=== PATIENT | female | born 1930 | race Caucasian/White ===

== ENCOUNTER 2020-08-26 11:14 | Inpatient (IN) | payer MEDICARE ==
[~2020-08-26] VITALS: Ht 165.1 cm; Wt 56.1 kg
[2020-08-26 11:42] VITALS: BP 145/122
[2020-08-26] MEDS ORDERED: AREDS OPHTHALMIC (11:48)
[2020-08-26] MEDS ORDERED: NIACIN SR 250250 MG PO (11:49)
[2020-08-26 12:51] LABS: ABSOLUTE LYMPHOCYTES 1.3 thou/uL (0.8-5.3); ABSOLUTE MONOCYTES 0.5 thou/uL (0.0-1.2); ABSOLUTE NEUTROPHILS 5.1 thou/uL (1.6-8.1); BASOPHILS 0.4 %; EOSINOPHILS 0.6 %; HEMATOCRIT 35.9 % (37.0-47.0); HEMOGLOBIN 12.5 gm/dL (12.0-15.0); LYMPHOCYTES 19.1 %; MCH 29.6 pg (26.0-34.0); MCHC 34.7 g/dL (28.0-37.0); MCV 85.2 fL (80.0-100.0); MONOCYTES 7.3 %; MPV 6.3 fl. (7.2-11.1); NUCLEATED RBCS 0 /100WBC; PLATELET COUNT* 263 thou/uL (150-400); POLYS 72.6 %; RBC 4.22 mil/uL (4.20-5.00); RDW-CV 13.4 % (10.5-14.5)
[2020-08-26 13:03] LABS: CALCIUM 9.5 mg/dL (8.5-10.1); CREATININE 1.1 mg/dL (0.6-1.3); POTASSIUM 3.9 mmol/L (3.5-5.1)
[2020-08-26 13:19] LABS: ALBUMIN 4.2 g/dL (3.4-5.0); TOTAL BILIRUBIN 0.7 mg/dL (<0.1-1.0); TOTAL PROTEIN 8.1 g/dL (6.4-8.2)
[2020-08-26 13:28] LABS: URINE BILIRUBIN NEGATIVE (Negative); URINE BLOOD NEGATIVE (Negative); URINE CLARITY CLEAR; URINE COLOR YELLOW; URINE GLUCOSE-RANDOM NEGATIVE (Negative); URINE KETONES 1+ (Negative); URINE LEUKOCYTES-REFLEX NEGATIVE (Negative); URINE NITRITE-REFLEX NEGATIVE (Negative); URINE PROTEIN NEGATIVE (Negative); URINE SPECIFIC GRAVITY <= 1.005 (1.005-1.030); URINE UROBILINOGEN 0.2 E.U./dl (0.2-1.0)
--- NOTE | 2020-08-26 15:56 | EKG ---
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: : 1930 Requested By: Arturo Urrutia Order Number: [id number] MD: Ventura De Santiago Measurements Intervals [place] Rate: 53 P: 16 CT: 194 QRS: -30 QRSD: 108 T: 26 QT: 475 QTc: 446 Interpretive Statements Sinus bradycardia Left axis deviation Borderline ST elevation, lateral leads No previous ECG available for comparison Electronically Signed On 08-26-2020 15:56:12 CDT by Ventura De Santiago [email or web address] <ELECTRONICALLY SIGNED> By: Ventura De Santiago MD, [facility] 08/26/20 1556 1305 1305 Ventura De Santiago MD, FAC /EPI
[2020-08-26 20:00] VITALS: BP 103/40
[2020-08-26 20:05] VITALS: BP 122/43
[2020-08-26] MEDS ORDERED: ONE-A-DAY WOMENS PO (23:11)
[2020-08-27] VITALS: BP 109/48
[2020-08-27 04:00] VITALS: BP 111/34
--- NOTE | 2020-08-27 04:39 | NUR ---
RECEIVED PT FROM ED AT APPROX 1999. PT IS AWAKE AND ORIENTED X4. PT IS NOT IN DISTRESS, NO DESATURATIONS NOTED ON ROOM AIR. PT IS TRACING SR/SB ON THE DOCKING SAW OPERATOR. PT DENIES PAIN/DISCOMFORT. ADMISSION ASSESSMENT DONE AND CHARTED. PT IS ORIENTED ON ROOM SET UP AND ON THE USE OF CALL LIGHT. FALL PRECAUTIONS IN PLACE. CALL LIGHT WITHIN REACH. HOURLY ROUNDING DONE FOR PT SAFETY.
[2020-08-27 04:58] LABS: URINE POTASSIUM-RANDOM 18.7 mmol/L
[2020-08-27 08:32] LABS: ABSOLUTE EOSINOPHILS 0.1 thou/uL (0.0-0.7); ABSOLUTE LYMPHOCYTES 1.3 thou/uL (0.8-5.3); ABSOLUTE MONOCYTES 0.5 thou/uL (0.0-1.2); ABSOLUTE NEUTROPHILS 3.8 thou/uL (1.6-8.1); BASOPHILS 0.5 %; EOSINOPHILS 1.6 %; HEMATOCRIT 31.4 % (37.0-47.0); LYMPHOCYTES 23.3 %; MCH 29.9 pg (26.0-34.0); MCV 85.5 fL (80.0-100.0); MONOCYTES 8.9 %; MPV 6.7 fl. (7.2-11.1); NUCLEATED RBCS 0 /100WBC; PLATELET COUNT* 226 thou/uL (150-400); POLYS 65.7 %; RBC 3.68 mil/uL (4.20-5.00); RDW-CV 13.4 % (10.5-14.5); WBC 5.7 thou/uL (4.0-11.0)
[2020-08-27 08:51] LABS: CALCIUM 7.8 mg/dL (8.5-10.1); CREATININE 0.9 mg/dL (0.6-1.3); POTASSIUM 4.2 mmol/L (3.5-5.1)
[2020-08-27 15:29] VITALS: BP 106/40
--- NOTE | 2020-08-27 19:06 | NUR ---
ASSUMED CARE OF PATIENT AT 0700. ALL ASSESSMENTS COMPLETED CHARTED. PT ALERT AND ORIENTED X4; MATILDA ANY PAIN; VERY PLEASANT; SR ON THE MONITOR.
[2020-08-27 20:00] VITALS: BP 106/36
[2020-08-28] VITALS: BP 102/41
[2020-08-28 04:00] VITALS: BP 112/33
--- NOTE | 2020-08-28 04:20 | NUR ---
ASSUMED PT CARE AT APPROX 1930. PT IS AWAKE AND ORIENTED X4. PT IS NOT IN DISTRESS, NO DESATURATIONS NOTED ON ROOM AIR. PT IS TRACING SB ON THE TEACHING SUPERVISOR.BP ON THE SOFT SIDE, PT C/O SLIGHT DIZINESS WITH AMBULATION, PT IS ADVISED TO CHANGE POSITIONS SLOWLY. FALL PRECAUTIONS IN PLACE. PT IS CLOSELY MONITORED.
[2020-08-28 08:00] VITALS: BP 121/38
[2020-08-28 08:35] LABS: ABSOLUTE EOSINOPHILS 0.1 thou/uL (0.0-0.7); ABSOLUTE LYMPHOCYTES 1.5 thou/uL (0.8-5.3); ABSOLUTE MONOCYTES 0.4 thou/uL (0.0-1.2); ABSOLUTE NEUTROPHILS 3.9 thou/uL (1.6-8.1); BASOPHILS 0.5 %; EOSINOPHILS 2.4 %; HEMATOCRIT 31.3 % (37.0-47.0); HEMOGLOBIN 10.9 gm/dL (12.0-15.0); LYMPHOCYTES 24.3 %; MCHC 34.8 g/dL (28.0-37.0); MCV 86.1 fL (80.0-100.0); MONOCYTES 7.1 %; MPV 6.9 fl. (7.2-11.1); NUCLEATED RBCS 0 /100WBC; PLATELET COUNT* 222 thou/uL (150-400); POLYS 65.7 %; RBC 3.64 mil/uL (4.20-5.00); RDW-CV 13.6 % (10.5-14.5)
[2020-08-28 08:49] LABS: CALCIUM 7.9 mg/dL (8.5-10.1); CREATININE 0.9 mg/dL (0.6-1.3)
[2020-08-28 11:30] VITALS: BP 95/35
[2020-08-28 14:17] VITALS: BP 95/35
--- NOTE | 2020-08-28 19:04 | NUR ---
PT. AOX4, VSS, DENIES PAIN OR DISCOMFORT. CALL LIGHT AND PERSONAL BELONGINGS PLACED WITHIN REACH. DC ORDERS RECEIVED. DC PACKET PROVIDED, PT VERBALIZED UNDERSTNADING. PT. LEFT UNIT BY WHEELCHAIR, WITH PERSONAL BELONGINGS, BY NURSING STAFF AND PICKED UP BY FRIEND. PT. REFUSED HOME HEALTH, SEE DC PACKET NOTES. PT. IN STABLE CONDITION AT TIME OF LEAVING UNIT.
== END 2020-08-28 16:10 | disposition home or self-care (01) | DRG 641 ==
LOC: M.ERS 11:14 → M.TBA-ER 15:53 → M.2W 20:00
PROVIDERS: Physician Assistant; ADMIT Internal Medicine; ATTEND Internal Medicine
DX: E87.1 Hypo-osmolality and hyponatremia (principal); E44.0 Moderate protein-calorie malnutrition; T50.2X5A Adverse effect of carbonic-anhydrase inhibitors, benzothiadiazides and other diuretics, initial encounter; N18.30 Chronic kidney disease, stage 3 unspecified; Z20.822 Contact with and (suspected) exposure to COVID-19; Z68.20 Body mass index [BMI] 20.0-20.9, adult; Y92.89 Other specified places as the place of occurrence of the external cause; Z86.16 Personal history of COVID-19; Z85.038 Personal history of other malignant neoplasm of large intestine

== ENCOUNTER → 2020-09-19 | Outpatient (CLI) | payer MEDICARE ==
[~2020-09-19] MED LIST: AREDS OPHTHALMIC; NIACIN SR 250250 MG PO; ONE-A-DAY WOMENS PO
--- NOTE | 2020-09-19 14:32 | 2DMMODE ---
[place] [address] 2 D/M-MODE ECHOCARDIOGRAM Name: NIRMAL KOCH Mindy Room: [facility]#: [id number] Admission: 09/19/20 Attend Phys: Randa Pappas MD Discharge: Date of : [birth year] Date of Service: 09/19/20 1432 Report #: [id number] THIS REPORT FOR: cc: Randa Pappas MD, Lin W. MD Holkins, John M. MD [facility] ~ APPROVED REPORT Study performed: 09/19/2020 12:53:30 EXAM: Comprehensive 2D, Doppler, and color-flow Echocardiogram Patient Location: Out-Patient BSA: 1.58 HR: 53 bpm BP: 132/70 mmHg Other Information Study Quality: Good Indications Peripheral Edema 2D Dimensions IVSd: 12.28 (7-11mm) LVOT Diam: 20.39 (18-24mm) LVDd: 40.09 mm PWd: 9.39 (7-11mm) Ascending Ao: 24.97 (22-36mm) LVDs: 23.81 (25-40mm) Aortic Root: 27.67 mm Volumes Left Atrial Volume (Systole) LA ESV Index: 29.70 mL/m2 Aortic Valve AoV Peak Italo.: 1.18 m/s AO Peak Gr.: 5.56 mmHg LVOT Max P.11 mmHg AO Mean Gr.: 2.92 mmHg LVOT Mean P.38 mmHg LVOT Max V: 1.24 m/s AO V2 VTI: 28.72 cm LVOT Mean V: 0.68 m/s ANABELLE (VTI): 3.25 cm2 LVOT V1 VTI: 28.55 cm Mitral Valve E/A Ratio: 0.92 [place] [address] 2 D/M-MODE ECHOCARDIOGRAM Name: NIRMAL KOCH Room: [facility]#: [id number] Admission: 09/19/20 Attend Phys: Randa Pappas MD Discharge: Date of : [birth year] Date of Service: 09/19/20 1432 Report #: [id number] MV Decel. Time: 219.63 ms MV E Max Italo.: 0.66 m/s MV PHT: 63.69 ms MVA (PHT): 3.45 cm2 TDI E/Lateral E': 5.08 E/Medial E': 7.33 Medial E' Italo.: 0.09 m/s Lateral E' Italo.: 0.13 m/s Pulmonary Valve PV Peak Italo.: 0.76 m/s PV Peak Gr.: 2.33 mmHg Tricuspid Valve RAP Estimate: 5.00 mmHg TR Peak Gr.: 29.71 mmHg RVSP: 34.71 mmHg PA Pressure: 34.71 mmHg Left Ventricle The left ventricle is normal size. There is normal LV segmental wall motion. There is normal left ventricular wall thickness. Left ventricular systolic function is normal. The left ventricular ejection fraction is within the normal range. LVEF is 55-60%. Grade I - abnormal relaxation pattern. Right Ventricle The right ventricle is normal size. The right ventricular systolic function is normal. Atria The left atrium size is normal. The right atrium size is normal. Aortic Valve Mild aortic valve sclerosis. Mild aortic regurgitation. There is no aortic valvular stenosis. Mitral Valve The mitral valve is normal in structure. Mild mitral regurgitation. No evidence of mitral valve stenosis. Tricuspid Valve The tricuspid valve is normal in structure. Mild tricuspid regurgitation[place] [address] 2 D/M-MODE ECHOCARDIOGRAM Name: NIRMAL KOCH Room: [facility]#: [id number] Admission: 09/19/20 Attend Phys: Randa Pappas MD Discharge: Date of : [birth year] Date of Service: 09/19/20 1432 Report #: [id number] The pulmonary valve is normal in structure. There is no pulmonic valvular regurgitation. Great Vessels The aortic root is normal in size. IVC is normal in size and collapses >50% with inspiration. Pericardium There is no pericardial effusion. <Conclusion> The left ventricle is normal size. Left ventricular systolic function is normal. The left ventricular ejection fraction is within the normal range. LVEF is 55-60%. Grade I - abnormal relaxation pattern. The right ventricle is normal size. The left atrium size is normal. The right atrium size is normal. Mild aortic valve sclerosis. Mild aortic regurgitation. There is no aortic valvular stenosis. The mitral valve is normal in structure. Mild mitral regurgitation. The tricuspid valve is normal in structure. Mild tricuspid regurgitation. IVC is normal in size and collapses >50% with inspiration. There is no pericardial effusion. There is normal LV segmental wall motion. <ELECTRONICALLY SIGNED> By: Felix Mas MD, FACC 09/19/20 1432 [id number] Felix Mas MD, FACC /INF
== END ==
LOC: M.CRD 10:00
PROVIDERS: ATTEND Internal Medicine
DX: I08.3 Combined rheumatic disorders of mitral, aortic and tricuspid valves (principal); R60.0 Localized edema; R06.02 Shortness of breath; R55 Syncope and collapse